=== PATIENT | male | born 1975 | race Caucasian/White ===

== ENCOUNTER 2020-08-09 13:56 | Emergency (ER) | payer OTHER, SELFPAY ==
[2020-08-09 14:00] VITALS: BP 111/63; PULSE 106; RESP 20; TEMP 36.8; O2SAT 95; BMI 52.5
--- NOTE | 2020-08-09 14:27 | RAD_ITS ---
STUDY: X-RAY CHEST REASON FOR EXAM: Male, 45 years old. cough, fever TECHNIQUE: AP COMPARISON: None. FINDINGS: There are patchy reticular and groundglass opacities of the bilateral lower lobes and right upper lobe. There is no demonstrated pleural abnormality. Normal size heart. Normal mediastinum and merlyn. Normal visualized pulmonary arteries. Normal visualized aortic arch and descending thoracic aorta. Normal visualized thoracic spine. Normal visualized ribs, clavicles, and shoulders. There is no demonstrated abnormality of the visualized soft tissue structures of the upper abdomen. RAD/Chest 1 View (Portable) IMPRESSION: Multilobar pulmonary infiltrates suggesting pneumonia. Electronically Signed: Vic Shepherd MD ([place]) at 15:03 EDT , Service support ,
--- NOTE | 2020-08-09 14:28 | EDS_ITS ---
HPI History of Present Illness Chief Complaint: General Illness Informant: patient and spouse/S.O. Onset/Context/Timing Onset: Weeks (1.5) Context: Gradual Onset Timing: Continuous and Waxes and wanes Quality: Weak, fevers, chills Location: All over Current Severity: Severe Maximum Severity: Severe Worsened by: Nothing Relieved by: Nothing Associated Symptoms Associated Symptoms: Diarrhea which is better now Narrative Narrative: Patient with this illness that started almost 1.5 weeks ago, initially had more fevers and chills and diarrhea, lack of energy. Now diarrhea is gone and now it is mostly the other symptoms. He denies myalgias. He has had a mild cough. Denies any shortness of breath. He has not had COVID-19. Patient is [employer]. He has had no contact with anyone that he knows of with COVID-19, he has not had the vaccine, no one else in his household is ill. [facility] Medical History (Updated 08/09/20 @ 17:[address] Pablo Long MD) Bipolar disorder Home Medications lamotrigine 400 mg PO DAILY 08/09/20 [History Last Taken Unknown] lithium carbonate 600 mg PO QHS 08/09/20 [History Last Taken Unknown] lorazepam 1 mg PO BID PRN 08/09/20 [History Last Taken Unknown] quetiapine 50 mg PO QHS 08/09/20 [History Last Taken Unknown] Allergy/AdvReac Type Severity Reaction Status Date / Time No Known Allergies Allergy Verified 08/09/20 14:00 Social History (Updated 08/09/20 @ 14:[address] Pablo Long MD) Smoking Status: Never smoker alcohol intake: never ROS ROS ED Constitutional Constitutional ED: Reports as per HPI, anorexia, chills, fever(s), malaise and subjective Eyes Eyes: Denies change in vision or diplopia ENT ENT ED: Reports other Details: Changes in smell/taste but not complete loss ; Denies rhinorrhea or sore throat Cardiovascular Cardiovascular: Denies chest pain or palpitations Respiratory/Chest Respiratory/Chest: Reports cough; Denies dyspnea Gastrointestinal Gastrointestinal: Denies abdominal pain, nausea or vomiting Genitourinary Genitourinary ED: Denies dysuria or hematuria Musculoskeletal Musculoskeletal: Denies back pain or neck pain Integumentary Denies abscess or rash Neurologic Neurologic: Denies headache(s), paresthesias or weakness Psychiatric Psychiatric: Denies anxiety or suicidal thoughts EXAM Physical Exam Const Vital Signs: 08/09/20 14:00 08/09/20 14:44 08/09/20 14:45 Temperature 98.3 F 98.3 F Temperature Source Oral Oral Pulse Rate 106 H 106 H Respiratory Rate 20 H 20 H Respiratory Effort Normal Non-Labored Respiratory Pattern Normal Blood Pressure 111/63 111/63 Blood Pressure Mean 79 79 Pulse Ox 95 95 Oxygen Delivery Method Room Air Room Air 08/09/20 15:51 08/09/20 17:32 Temperature 100.7 F H 100.8 F H Temperature Source Oral Oral Pulse Rate 92 Respiratory Rate 19 H Respiratory Effort Respiratory Pattern Blood Pressure 108/77 Blood Pressure Mean 87 Pulse Ox 93 Oxygen Delivery Method Room Air Positive well nourished and well developed General Appearance ED: well developed and NAD HEENT Reports moist mucous membranes normocephalic and atraumatic Eyes PERRL and EOMs intact bilaterally Neck full ROM and supple Resp normal respiratory effort and clear to auscultation bilaterally Cardio regular rate, regular rhythm and no murmurs GI non-tender and non-distended Auscultation: normoactive bowel sounds Palpation: soft Back/Spine no CVA tenderness General Back: other FROM Extremity normal to inspection General Extremety ED: Negative for edema, pulses abnormal or tenderness General Extremity: Negative for edema or pulses abnormal Neuro oriented x3, CN's II-XII intact bilaterally and no sensory deficits noted Sensorium / Orientation: awake and alert Motor Exam: strength 5/5 throughout Skin no rashes or lesions noted and no wounds MDM MDM MDM Narrative Medical decision making narrative: Given his symptoms, pretest probability is highly suspicious for COVID-19. Precautions were taken from the moment the patient was triaged. Rapid Covid swab is positive for Covid, which I believe is a true positive. The rest of the work-up is unremarkable except for the chest x-ray which shows interstitial abnormalities bilaterally consistent with Covid as well. Patient is not dyspneic nor hypoxic. He meets no criteria for admission or outpatient monoclonal antibody infusion or oxygen at this time. We discussed reasons to return which include dyspnea, hypoxemia. Discussed precautions for family members and self-care. Lab Data Attestation: I reviewed the patient's lab results. Labs: Laboratory Results - last 24 hr 08/09/20 08/09/20 14:50 14:50 WBC 5.9 RBC 5.27 Hgb 14.9 Hct 45.7 MCV 86.7 MCH 28.3 MCHC 32.6 RDW Std Deviation 39.5 RDW Coeff of Elsi 12.3 Plt Count 188 MPV 9.6 Immature Gran % (Auto) 0.700 Neut % (Auto) 65.6 Lymph % (Auto) 28.4 [place] % (Auto) 5.1 Eos % (Auto) 0.0 Baso % (Auto) 0.2 Absolute Neuts (auto) 3.9 Absolute Lymphs (auto) 1.67 Nucleated RBC % 0 Sodium 135 L Potassium 3.9 Chloride 100 Carbon Dioxide 28.0 Anion Gap 7 BUN 8 Creatinine 1.17 Estim Creat Clear Calc 83.19 Est GFR (MDRD) Af Amer 87 Est GFR (MDRD) Non-Af 72 BUN/Creatinine Ratio 6.8 L Glucose 105 Calcium 8.3 L Radiography Chest X-Ray - ED: 1 View, Read by ED Physician, Right Infiltrate and Left Infiltrate Diagnostic Testing: Radiology Impression Chest X-Ray 08/09/20 14:27 IMPRESSION: Multilobar pulmonary infiltrates suggesting pneumonia. Electronically Signed: Vic Shepherd MD ([place]) at 15:03 EDT , Service support , Discharge Plan Triage Chief Complaint: General Illness ED Provider: Pablo Long Dx/Rx/DC Orders Clinical Impression: COVID-19 Instructions: Coronavirus Disease 2019 (COVID-19): Caring for Yourself or Others Prescriptions: No Action lamotrigine 200 mg tablet 400 mg PO DAILY RF: 0 quetiapine 200 mg tablet 50 mg PO QHS RF: 0 lithium carbonate 300 mg capsule 600 mg PO QHS RF: 0 lorazepam 1 mg tablet 1 mg PO BID PRN (Reason: Anxiety) RF: 0 Referrals: Doctor,Your [STAFF PHYSICIAN] - As Needed (Or return to ER if shortness of breath or pulse oximetry less than 90%) Disposition Disposition: Home, self care
[2020-08-09 14:45] VITALS: BP 111/63; PULSE 106; RESP 20; TEMP 36.8; O2SAT 95
[2020-08-09] MEDS: 0.9% Normal Saline 1,000 ML 1000 ML IV (14:45)
[2020-08-09 14:59] LABS: Absolute Lymphocyte Count 1.67 X10^3/uL (0.83-4.51); Absolute Neutrophil Count 3.9 X10^3/uL (2.0-7.7); Basophil# 0.01 X10^3/uL; Basophil% 0.2 % (0-1); Hematocrit 45.7 % (40-54); Hemoglobin 14.9 g/dL (13.0-16.5); Lymphocyte # 1.67 X10^3/ul (0.83-4.51); Lymphocyte % 28.4 % (19-41); Mean Corp Hgb Conc 32.6 g/dL (32-36); Mean Corpuscular Hgb 28.3 pg (27.0-32.0); Mean Corpuscular Volume 86.7 fL (80-94); Mean Platelet Vol. 9.6 fl (6.2-12.0); Monocyte% 5.1 % (0-10); NRBC Flagged by Analyzer 0 % (0-5); Neutrophil # 3.87 X10^3/uL (2.7-7.7); Neutrophil % 65.6 % (47-70); Platelet Count 188 K/mm3 (150-450); RBC Distribution Width CV 12.3 % (11.6-14.6); RBC Distribution Width SD 39.5 fl (35.1-43.9); Red Blood Count 5.27 M/mm3 (4.6-6.2); White Blood Count 5.9 K/mm3 (4.4-11.0)
[2020-08-09 15:11] LABS: Anion Gap 7 (5-15); BUN 8 mg/dL (7-18); BUN/Creat Ratio 6.8 RATIO (10-20); Calcium,Total 8.3 mg/dL (8.5-10.1); Chloride 100 mmol/L (98-107); Creatinine, Serum 1.17 mg/dL (0.70-1.30); EST Glomerular Filtration Rate 72 mL/min (>60); Est Glom Filt Rate - Afr Amer 87 mL/min (>60); Estimated Creatinine Clearance 83.19 ml/min; Glucose 105 mg/dL (74-106); Potassium 3.9 mmol/L (3.5-5.1); Sodium Level 135 mmol/L (136-145)
[2020-08-09 15:51] VITALS: TEMP 38.2
[2020-08-09 17:32] VITALS: BP 108/77; PULSE 92; RESP 19; TEMP 38.2; O2SAT 93
[2020-08-09 17:44] VITALS: PULSE 92; RESP 18; O2SAT 93
== END 2020-08-09 18:10 | disposition home or self-care (01) ==
PROVIDERS: Emergency Provider Emergency Medicine
DX: U07.1 COVID-19 (principal); F31.9 Bipolar disorder, unspecified; Z79.899 Other long term (current) drug therapy
CPT/HCPCS: 71045; 80048; 85025; 87426; 96360; 96361; 99283; J7030